=== PATIENT | male | born 1980 | race Caucasian/White ===

== ENCOUNTER 2017-09-08 11:09 | Inpatient (IN) | payer OTHER ==
[~2017-09-08] VITALS: Ht 203.2 cm; Wt 101.2 kg
[2017-09-08 11:29] VITALS: BP 135/96
[2017-09-08] MEDS ORDERED: ZOFRAN ODT SL STA (11:45)
[2017-09-08] MEDS ORDERED: ZOFRAN ODT ONE (11:49)
--- NOTE | 2017-09-08 11:49 | ER.PDOC ---
General Chief Complaint: Abdomen Pain Stated Complaint: NAUSEA,VOMITING,ABDOMINAL PAIN Time seen by MD: 11:47 Source: patient Exam Limitations: no limitations History of Present Illness Initial Comments Nausea/vomiting/abdominal pain for 2 days Severity/Quality: moderate Abdominal Pain Onset Location: Epigastric Associated Symptoms (vomiting): freq vomitng Allergies: Coded Allergies: No Known Allergies (Unverified , 09/08/17) Vital Signs First Vital Signs Date Time Temp Pulse Resp B/P (MAP) Pulse Ox O2 Delivery O2 Flow Rate FiO2 09/08/17 11:26 98.3 18 18 98 Room Air 09/08/17 11:29 135/96 (109) Last Vital Signs Date Time Temp Pulse Resp B/P (MAP) Pulse Ox O2 Delivery O2 Flow Rate FiO2 09/08/17 11:29 98.3 18 18 135/96 (109) 98 Room Air Past Medical History Medical History: GERD Surgical History: cancer surgery Social History Smoking: non-smoker Alcohol Use: occassionally Drug Use: none, marijuana Constitutional: no symptoms reported EENTM: no symptoms reported Respiratory: cough Cardiovascular: no symptoms reported Gastrointestinal: see HPI Genitourinary: no symptoms reported All Other Systems: Reviewed and Negative Physical Exam General Appearance: No Apparent Distress, WD/WN HEENT: PERRL/EOMI Neck: Non-Tender, Full Range of Motion, Supple, Normal Inspection Respiratory: chest non-tender, lungs clear, normal breath sounds, no respiratory distress, no accessory muscle use Cardiovascular: Normal Peripheral Pulses, Regular Rate, Rhythm, No Edema, No Gallop, No JVD, No Murmur Gastrointestinal: No Organomegaly, No Pulsatile Mass, Hyperactive bowel sounds , Tenderness (epigastric area) Back: Normal Inspection, No CVA Tenderness, No Vertebral Tenderness Extremities: Normal Range of Motion, Non-Tender, Normal Inspection, No Pedal Edema, No Calf Tenderness, Normal Capillary Refill, Pelvis Stable 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, No Motor/Sensory Deficits, Alert, Normal Mood/Affect, Oriented x 3 Skin: Normal Color, Warm/Dry Results/Orders Results/Orders Laboratory Tests Test 09/08/17 11:56 09/08/17 13:01 White Blood Count 13.9 10^3/uL (4.5-11.0) Red Blood Count 5.08 10^6/uL (4.50-5.90) Hemoglobin 13.7 g/dL (13.9-16.3) Hematocrit 42.1 % (37.0-53.0) Mean Corpuscular Volume 82.9 fL (78-100) Mean Corpuscular Hemoglobin 27.0 pg (26-34) Mean Corpuscular Hemoglobin Concent 32.5 g/dL (33-37) Red Cell Distribution Width 14.7 % (11.5-14.5) Platelet Count 262 10^3/uL (150-400) Mean Platelet Volume 9.8 fL (7.8-11.0) Neutrophils (%) (Auto) 80.6 % (41.0-85.0) Lymphocytes (%) (Auto) 10.7 % (24.0-44.0) Monocytes (%) (Auto) 7.3 % (5.0-12.0) Neutrophils # (Auto) 11.2 10^3/uL (1.8-7.7) Lymphocytes # (Auto) 1.5 10^3/uL (1.0-4.8) Monocytes # (Auto) 1.0 10^3/uL (0.3-0.8) Absolute Immature Granulocyte (auto 0.04 10^3 u/L (0-2) Eosinophils % 1.0 % (0.0-5.0) Basophils % 0.1 % (0.0-0.2) Basophils # 0.0 10^3/uL (0.0-0.1) Eosinophil Count 0.1 10^3/uL (0.0-0.2) Sodium Level 137 mmol/L (132-145) Potassium Level 3.3 mmol/L (3.6-5.2) Chloride Level 102.0 mmol/L (96-109) Carbon Dioxide Level 23.8 mmol/L (20.0-32) Anion Gap 14.5 Blood Urea Nitrogen 19 mg/dL (7-18) Creatinine 1.19 mg/dL (0.59-1.40) Estimated GFR () 82.3 (>/=60) BUN/Creatinine Ratio 15.0 Glucose Level 131 mg/dL (70-110) Calcium Level 9.0 mg/dL (8.4-10.5) Total Bilirubin 0.9 mg/dL (0.2-1.0) Aspartate Amino Transf (AST/SGOT) 27 U/L (0-35) Alanine Aminotransferase (ALT/SGPT) 28 U/L (12-78) Alkaline Phosphatase 71 U/L (50-136) Total Protein 7.0 g/dL (6.4-8.2) Albumin 3.5 g/dL (3.4-5.0) Globulin 3.5 Lipase 74 U/L (114-286) Percent Immature Gran (Cell Imm) 0.30 % (0.00-0.50) Gastric Fluid Occult Blood POSITIVE (NEGATIVE) Administered Medications Medications (Trade) Dose Ordered Sig/Leatha Route PRN Reason Start Time Stop Time Status Last Admin Dose Admin Ondansetron HCl (Zofran Odt) 4 mg STAT STAT SL 09/08/17 11:45 09/08/17 11:47 DC 09/08/17 11:51 Sodium Chloride 1,000 ml @ 1,200 mls/hr Q50M STAT IV 09/08/17 12:48 09/08/17 13:37 DC 09/08/17 13:05 Ondansetron HCl (Zofran) 4 mg STAT STAT IV 09/08/17 12:48 09/08/17 12:51 DC 09/08/17 13:05 Pantoprazole Sodium (Protonix Iv) 80 mg STAT STAT IV 09/08/17 13:50 09/08/17 13:51 DC 09/08/17 13:53 Pantoprazole Sodium 80 mg/ Sodium Chloride 100 ml @ 10 mls/hr Q10H IV 09/08/17 14:00 10/08/17 13:59 09/08/17 13:59 EKG/XRAY/CT/US CT Comments: Pneumonia, see rest of CT results Departure Time of Disposition: 15:21 Disposition: 09 ADMITTED INPATIENT Impression: Primary Impression: GI bleed Qualified Codes: K92.2 - Gastrointestinal hemorrhage, unspecified Additional Impression: Pneumonia Qualified Codes: J18.9 - Pneumonia, unspecified organism Condition: Stable Referrals: PCP,UNKNOWN (PCP) PRIMARY CARE PROVIDER Comments Admit to Dr. Magallanes Duration or Time Spent with Pa: 120 mins Critical Care Note Total Time (mins): 120 MARIA ESTHER CONWAY MD Sep 08, 2017 11:49
[2017-09-08 12:01] LABS: BASOPHIL % 0.1 % (0.0-0.2); EOSINOPHIL # 0.1 10^3/uL (0.0-0.2); HEMOGLOBIN 13.7 g/dL (13.9-16.3); LYMPHOCYTES # 1.5 10^3/uL (1.0-4.8); LYMPHOCYTES % 10.7 % (24.0-44.0); MEAN CELL HGB CONCENTRATION 32.5 g/dL (33-37); MEAN CORP VOLUME 82.9 fL (78-100); MEAN PLATELET VOLUME 9.8 fL (7.8-11.0); MONOCYTES % 7.3 % (5.0-12.0); NEUTROPHIL # 11.2 10^3/uL (1.8-7.7); NEUTROPHILS % 80.6 % (41.0-85.0); RED CELL DISTRIBUTION WIDTH 14.7 % (11.5-14.5); WHITE BLOOD CELL 13.9 10^3/uL (4.5-11.0)
--- NOTE | 2017-09-08 12:10 | DIREP ---
PROCEDURE:XR ABDOMEN 2 VIEWS COMPARISON:None. INDICATIONS:Abdomen pain x 1 day TECHNIQUE:Flat and upright views of the abdomen are provided. FINDINGS: BOWEL GAS PATTERN:Nonobstructive. No excess stool visible in the colon. CALCIFICATIONS:None significant. LUNG BASES:Clear. BONES:Normal. OTHER:No free air. CONCLUSION:No acute abnormalities. Dictated by: Navarro Amaya M.D. on 09/08/2017 at 12:08 PM
[2017-09-08 12:24] LABS: CARBON DIOXIDE 23.8 mmol/L (20.0-32)
[2017-09-08] MEDS ORDERED: NS 1000ML 1,000 ML IV STA (12:48)
[2017-09-08] MEDS ORDERED: ZOFRAN IV STA (12:48)
[2017-09-08] MEDS ORDERED: NS 1000ML 1,000 ML ONE (12:53)
[2017-09-08] MEDS ORDERED: ZOFRAN ONE (12:53)
[2017-09-08] MEDS ORDERED: PROTONIX IV IV STA (13:50)
[2017-09-08] MEDS ORDERED: PROTONIX IV IV ONE (13:54)
[2017-09-08] MEDS ORDERED: NS 100ML 100 ML IV ONE (13:54)
[2017-09-08] MEDS: PROTONIX IV 80 MG in NS 100ML 100 ML IV SCH (13:59)
--- NOTE | 2017-09-08 14:48 | DIREP ---
PROCEDURE:CT ABDOMEN/PELVIS W/ CONTRAST COMPARISON:[facility], CR, XRAY ABDOMEN 2VW, 09/08/2017, 11:50 AM. INDICATIONS:Upper abdominal pain and vomiting TECHNIQUE:Axial images were created through the abdomen and pelvis with non-ionic intravenous contrast material. No oral contrast was administered. Sagittal and coronal reconstructions were performed from source images. FINDINGS: LUNG BASES:Patchy lingular consolidation suggestive of pneumonia. Minimal partially seen infiltrate or atelectasis is also suspected at the left lower lobe. LIVER:Normal. No significant liver lesions are identified. BILIARY:Normal. No visible dilatation or calcification. PANCREAS:Normal. No lesion, fluid collection, ductal dilatation, or atrophy. SPLEEN:Normal. No enlargement or focal lesion. ADRENALS:Normal. No mass or enlargement. URINARY TRACT:Normal. No focal lesions or hydronephrosis. AORTA/VASCULAR:Normal. No aneurysm. RETROPERITONEUM:Normal. No mass or adenopathy. BOWEL/MESENTERY:The appendix is visualized and appears normal. There is no intestinal obstruction, free fluid, free air or mesenteric inflammatory changes. There is a small hiatal hernia however the gastroesophageal junction that appears to extend below the diaphragmatic hiatus. There is herniation of the gastric fundus through the esophageal hiatus consistent with a paraesophageal hernia. There are surgical clips at the gastroesophageal junction. Findings could also represent an Natanael fundoplication. Clinical correlation for incarceration is recommended. ABDOMINAL WALL:Normal. No mass or hernia. PELVIC ORGANS:Normal. No visible mass. Pelvic organs appropriate for patient age. BONES:Endplate subchondral cystic changes involving L4 and L5.. OTHER:Negative. CONCLUSION: 1. Patchy lingular consolidation consistent with bronchopneumonia. Minimal atelectasis or infiltrate in the left lower lobe is well. 2. Small paraesophageal hiatal hernia containing the gastric fundus. There are surgical clips at the gastroesophageal junction. Question Natanael fundoplication. The possibility of incarceration is not excluded given the patient's history of upper abdominal pain and vomiting. Dictated by: Rahul Kenny MD on 09/08/2017 at 02:41 PM
--- NOTE | 2017-09-08 15:03 | NUR ---
DR DEANDRA SANCHEZA ON PHONE WITH DR LIRIANO
--- NOTE | 2017-09-08 15:17 | NUR ---
DR MARILY BRYANT MBA ON PHONE WITH DR CALIXOT
[2017-09-08] MEDS ORDERED: LEVAQUIN 150 ML IV STA (15:24)
--- NOTE | 2017-09-08 15:24 | PRM.ACF1 ---
Date and Time Date and Time Time: :23 Admission Criteria Forms GASTROENTEROLOGY [facility] Clinical Indications for Admission to Inpatient Care ([place]/ check or initial the applicable condition/criteria) Hospital admission is needed for appropriate care of the patient because of ANY ONE of the following: I. Suspected acute intra-abdominal process indicated by 1 or more of the following(1)(2)(3)(4)(5): a) Hemodynamic instability b) Peritoneal signs present (eg, abdominal rigidity, rebound tenderness, absent bowel sounds) c) Bowel obstruction suspected (eg, persistent vomiting, abdominal distention )(6)(7)(8) d) Suspected mesenteric ischemia or ischemic colitis(9)(10)(11) e) Other signs or symptoms of acute abdominal disease (eg, severe pain, free air)(12) II. Hemoperitoneum(13)(14) III. Ascites requiring acute treatment indicated by 1 or more of the following ( 15)(16)(17)(18) a) Hemodynamic instability b) Peritoneal signs present (e.g., abdominal rigidity, rebound tenderness, absent bowel sounds) c) Tachypnea, Hypoxemia,or other respiratory symptoms remain after emergency or observation level care (as appropriate) d) Suspected infected ascites as indicated by 1 or more of the following(19) (20) i) Fever ii) Vital sign abnormality iii) Abdominal pain or tenderness not relieved by paracentesis iv) Systemic signs of infection (e.g., elevated WBC count, fever) v) Ascitic fluid analysis consistent with infection ( e.g., elevated WBC count) IV. Severe liver disease indicated by 1 or more of the following (15)(16)(21)(22 )(23)(24)(25)(26)(27)(28) a) Acute hepatitis (e.g., transaminaselevel greater than 1000 IU/L) b) Acute elevation of prothrombintime to more than 50% above normal or INR greater than 1.5 c) Bilirubin greater than 20 mg/dL (342 micromoles/L) d) New-onset or worseninghepatic encephalopathy e) Acute elevation of serum ammonia level (eg, greater than 210 mcg/dL ( 150 micromoles/L)) f) Acute liver necrosis g) Vomiting that is severe of persistent h) Hemodynamic instability due to liver disease i) Acute renal failure j) Hepatic abscess k) Hepatic hydrothorax(29) l) Other indications of severe liver disease (e.g., persistent fever, ingestion of hepatotoxin)(30) V. Dehydration that is severe or persistent . Severe diarrhea indicated by 1 or more of the following (31)(32)(33)(34)(35 ) : a) High fever or other high-risk infection situation b) Intractable bloody diarrhea (e.g., more than 6 bloody stools per day) c) Suspected etiology (Clostridiumdifficile-associated diarrhea) that requires isolation or care not feasible in outpatient setting (36) d) Altered mental status that is severe or persistent e) Dehydration that is severe or persistent g) Peritoneal signs present (e.g., abdominal rigidity, rebound tenderness , absent bowel sounds) h) Abdominal ischemia suspected (9)(10)(11) i) Hemodynamic instability j) Severe electrolyte abnormalities requiring inpatient care k) Acute renal failure VII. Suspected toxic michelle colon(4)(9) VIII. Severe dysphagia indicated by 1 or more of the following(37)(38) a) Suspected esophageal perforation or fistula(39) b) Suspected cause that requires inpatient care (e.g., caustic ingestion , severe esophagitis) (40)(41) c) Dehydration that is severe or persistent d) Inability to manage secretions or maintain hydration e) Hemodynamic instability f) Severe electrolyte abnormalities requiring inpatient care g) Acute renal failure IX. Vomiting and 1 or more of the following (42)(43)(44)(45)(46) a) High fever or other high-risk infection situation b) Altered mental status that is severe or persistent c) Dehydration that is severe or persistent d) Peritoneal signs present (e.g., abdominal rigidity, rebound tenderness, absent bowel sounds) e) Hemodynamic instability f) Severe electrolyte abnormalities requiring inpatient care g) Acute renal failure h) Bowel obstruction suspected (e.g., severe vomiting, abdominal distension) i) Vomiting that is severe or persistent X. Gastroparesis and 1 or more of the following(46)(47)(48)(49): a) Dehydration that is severe or persistent b) Severe electrolyte abnormalities requiring inpatient care c) Acute renal failure d) Vomiting that is severe or persistent XI Obstipation and 1 or more of the following(50)(51)(52)(53) a) Complication of fecal impaction (eg, stercoral ulceration, perforation, venous compression, obstructive uropathy) b) Fecal disimpaction by digital fragmentation or mechanical disimpaction unsuccessful XII Complication of gastrostomy or jejunostomy feeding tube(54)(55)(56) a) Luminal perforation b) Gastrocolonic fistula c) Cellulitis of surrounding area with failure of outpatient treatment d) Necrotizing fasciitis e) Peritonitis f) Gastric herniation or prolapse g) Ischemic necrosis of gastric wall ("buried bumper") h) Other complication of gastrostomy or jejunostomy unable to be resolved at lower level of care XII. Complications of transplanted liver indicated by 1 or more of the following (57)(58)(59): a) Acute graft rejection requiring inpatient management (eg, intravenous immuno suppression)(60)(61) b) Failure of transplanted liver as indicated by 1 or more of the following: i. Acute hepatitis (eg, transaminase level greater than 1000 International Units per liter (IU/L)) ii. Acute elevation of prothrombin time to more than 50% above baseline or INR greater than 1.5 iii. Bilirubin greater than 20 mg/dL (342 micromoles/L) iv. New-onset or worsening hepatic encephalopathy v. Acute elevation of serum ammonia level (eg, greater than 210 mcg/dL (150 micromoles/L)) vi. Acute liver necrosis c) Infection requiring inpatient management (eg, Hemodynamic instability, need for intravenous antimicrobial treatment) (62)(63)(64)(65)(66) d) Other complication of transplanted liver (eg, thrombosis, autoimmune hepatitis, variceal bleeding) requiring inpatient management (67)(68)(69) XII. Complications of transplanted pancreas indicated by 1 or more of the following (70) a) Acute graft rejection requiring inpatient management (eg, intravenous immunosuppression)(60)(71) b) Failure of transplanted pancreas as indicated by 1 or more of the following: i. Serum amylase greater than 3 times the upper limit of normal or baseline ii. Serum lipase greater than 3 times the upper limit of normal or baseline iii. Imaging findings consistent with pancreatic inflammation or necrosis c) Infection requiring inpatient management (eg, Hemodynamic instability, need for intravenous antimicrobial treatment) (64)(65)(66) d) Other complication of transplanted pancreas (eg, graft thrombosis, pancreatic duct stricture, anastomotic leak) requiring inpatient management (72 ) xIII. Gastroenterology condition,Symptom or finding for which emergency and observation care have failed or are not considered appropriate.See General criteria: Observation care, General Admission criteria or Pediatric General Admission criteria guideline as appropriate. The original [facility] content created by [facility] has been revised. The portions of the content which have been revised are identified through the use of italic text or in bold,and [facility] has neither reviewed nor approved the modified material. All other unmodified content is copyright [facility]. Please see references footnoted in the original [facility] edition 2017 MARIA ESTHER CONWAY MD Sep 08, 2017 15:24
[2017-09-08] MEDS ORDERED: D5W-1/2NS 1000ML 1,000 ML IV ONE (15:30)
--- NOTE | 2017-09-08 16:00 | NUR ---
ARRIVAL ARRIVED TO UNIT VIA WHEELCHAIR. REPORT RECEIVED FROM GIO MCKEON. ORIENTED PT TO ROOM, CALL LIGHT AND BATHROOM. BED IN LOW POSITION WHEELS LOCKED CALL LIGHT IN REACH. WILL CONTINUE TO MONITOR
[2017-09-08 17:46] VITALS: BP 136/65
--- NOTE | 2017-09-08 18:40 | NUR ---
Report Received report from Ketty Jennings LVN
[2017-09-08] MEDS ORDERED: ZOFRAN IV PRN (20:00)
[2017-09-08] MEDS ORDERED: MORPHINE SULFATE IV PRN (20:00)
[2017-09-08] MEDS ORDERED: TYLENOL PO PRN (20:00)
[2017-09-08] MEDS ORDERED: TYLENOL #3 PO PRN (20:00)
[2017-09-08 20:04] VITALS: BP 147/92
[2017-09-08] MEDS ORDERED: LACTATED RINGERS 1,000 ML IV SCH (20:30)
--- NOTE | 2017-09-08 21:59 | NUR ---
Patient resting in bed with eyes closed. Resp even and non labored. No s/s of distress noted at this time. Will continue to monitor. Call light within reach.
--- NOTE | 2017-09-09 | PCM.HP ---
History of Present Illness Reason for Visit: Throwing up blood History of Present Illness Mr Ward is a 37 year old man with a history of GERD and upper GI bleed in the past. He had a Natanael fundoplication about five years ago. He does not smoke and has a good functional status. He states he has done very well after fundoplication. Today he had a couple of episodes of hematemesis. He had subjective chills and diarrhea also. He is traveling from [place] but denies any sick contacts. His last emesis was upon arrival to the ER today. Past Medical History GI: GERD, GI Bleed, Gastritis Past Surgical History: Other (Natanael fundoplication) Past Social History Smoke: No Alcohol: none Drugs: None Lives: with Family Travel Hx EBOLA RISK:Travel to/contact w: No Is pt experiencing any Ebola s: No Review of Systems Constitutional: Chills, Weakness Eyes: No: Vision change, Conjunctivae inflammation, Redness ENT: No: Nose discharge, Mouth pain, Mouth swelling, Throat pain Respiratory: No: Cough, Shortness of breath, Wheezing, Hemoptysis Cardiovascular: No: Chest Pain, Palpitations, Edema, Lt Headedness Gastrointestinal: Nausea, Vomiting Genitourinary: No Dysuria, No Frequency Musculoskeletal: No: neck pain, shoulder pain, back pain Skin: No: Rash, Lesions, Jaundice Neurological: No: Weakness, Numbness, Incoordination Other Laboratory Tests Test 09/08/17 11:56 09/08/17 13:01 White Blood Count 13.9 10^3/uL Red Blood Count 5.08 10^6/uL Hemoglobin 13.7 g/dL Hematocrit 42.1 % Mean Corpuscular Volume 82.9 fL Mean Corpuscular Hemoglobin 27.0 pg Mean Corpuscular Hemoglobin Concent 32.5 g/dL Red Cell Distribution Width 14.7 % Platelet Count 262 10^3/uL Mean Platelet Volume 9.8 fL Neutrophils (%) (Auto) 80.6 % Lymphocytes (%) (Auto) 10.7 % Monocytes (%) (Auto) 7.3 % Neutrophils # (Auto) 11.2 10^3/uL Lymphocytes # (Auto) 1.5 10^3/uL Monocytes # (Auto) 1.0 10^3/uL Absolute Immature Granulocyte (auto 0.04 10^3 u/L Eosinophils % 1.0 % Basophils % 0.1 % Basophils # 0.0 10^3/uL Eosinophil Count 0.1 10^3/uL Sodium Level 137 mmol/L Potassium Level 3.3 mmol/L Chloride Level 102.0 mmol/L Carbon Dioxide Level 23.8 mmol/L Anion Gap 14.5 Blood Urea Nitrogen 19 mg/dL Creatinine 1.19 mg/dL Estimated GFR () 82.3 BUN/Creatinine Ratio 15.0 Glucose Level 131 mg/dL Calcium Level 9.0 mg/dL Total Bilirubin 0.9 mg/dL Aspartate Amino Transf (AST/SGOT) 27 U/L Alanine Aminotransferase (ALT/SGPT) 28 U/L Alkaline Phosphatase 71 U/L Total Protein 7.0 g/dL Albumin 3.5 g/dL Globulin 3.5 Lipase 74 U/L Percent Immature Gran (Cell Imm) 0.30 % Gastric Fluid Occult Blood POSITIVE Allergies: Coded Allergies: No Known Allergies (Unverified , 09/08/17) VTE VTE Risk Total Score: 3 VTE Risk Score VTE Risk: Score 0-1 = Low Risk (Aggressive mobilization; early ambulation; no VTE prophylaxis required) Score 2: Moderate Risk (Intermittent/Pneumatic Compression Device OR Lovenox/Heparin/Coumadin) Score 3-4: High Risk (Intermittent/Pneumatic Compression Device AND Lovenox/Heparin/Coumadin) Score > or =5: Highest Risk (Intermittent/Pneumatic Compression Device AND Lovenox/Heparin/Coumadin) VTE VTE Present on Admission: No Currently receiving anticoagul: No VTE Risk Total Score: 3 Exam Vital Signs Vital Signs Date Time Temp Pulse Resp B/P (MAP) Pulse Ox O2 Delivery O2 Flow Rate FiO2 09/08/17 20:04 98.7 94 18 147/92 (110) 92 Room Air General Appearance: Alert, Oriented X3, Cooperative, No acute distress HEENT: PERRLA, EOMI Respiratory: Clear to auscultation, Normal air movement Cardiovascular: Regular rate, Normal S1, Normal S2, No murmurs Abdominal: Normal bowel sounds, Soft, No tenderness Extremities: No clubbing, No cyanosis, No edema Skin: No breakdown, No lesions Neuro: Normal speech, Strength at 5/5 X4 ext, Cranial nerves 3-12 NL Psych/Mental Status: Mood NL Assessment/Plan Assessment/Plan Assessment/Plan Mr Ward is a 37 year old man status post fundoplication five years ago here with: 1. Lingular pneumonia - CT evidence of mild infiltrate, likely due to aspiration 2. Upper GI bleed - reported hematemesis and occult blood positive 3. Dehydration - clinically dehydrated Problems: Patient History: Plan 1. Lingular pneumonia - IV Levofloxacin 2. Upper GI bleed - IV PPI, General Surgery consult, follow hemoglobin 3. Dehydration - IV fluids PRN pain and nausea medications Plan discussed with patient, he is his own decision maker and does understand and concur with plans Time spent 40 minutes MAT CALIXTO MD Sep 08, 2017 23:59
[2017-09-09 00:27] VITALS: BP 130/75
[2017-09-09] MEDS: PROTONIX IV 80 MG in NS 100ML 100 ML IV SCH (00:50)
--- NOTE | 2017-09-09 02:14 | NUR ---
Patient continues to rest in bed with eyes closed. Resp even and non labored. No s/s of distress noted at this time. Will continue to monitor. Call light within reach.
[2017-09-09 05:12] VITALS: BP 132/82
[2017-09-09 05:21] LABS: BASOPHIL % 0.3 % (0.0-0.2); EOSINOPHIL # 0.3 10^3/uL (0.0-0.2); EOSINOPHIL % 3.8 % (0.0-5.0); HEMOGLOBIN 12.8 g/dL (13.9-16.3); LYMPHOCYTES % 25.7 % (24.0-44.0); MEAN CELL HGB 27.2 pg (26-34); MEAN CELL HGB CONCENTRATION 32.2 g/dL (33-37); MEAN CORP VOLUME 84.7 fL (78-100); MEAN PLATELET VOLUME 10.4 fL (7.8-11.0); MONOCYTES # 0.8 10^3/uL (0.3-0.8); MONOCYTES % 10.5 % (5.0-12.0); NEUTROPHIL # 4.7 10^3/uL (1.8-7.7); NEUTROPHILS % 59.6 % (41.0-85.0); RED CELL DISTRIBUTION WIDTH 14.6 % (11.5-14.5); WHITE BLOOD CELL 7.8 10^3/uL (4.5-11.0)
[2017-09-09 05:53] LABS: CALCIUM 8.5 mg/dL (8.4-10.5); CARBON DIOXIDE 28.1 mmol/L (20.0-32)
--- NOTE | 2017-09-09 06:41 | NUR ---
Report Report given to Sachi Buitrago RN
--- NOTE | 2017-09-09 07:24 | NUR ---
REPORT REPORT RECEIVED FROM SALESPERSON [employer]
[2017-09-09 07:32] VITALS: BP 108/59
[2017-09-09] MEDS ORDERED: WATER ONE (08:26)
[2017-09-09] MEDS ORDERED: LACTATED RINGERS 1,000 ML ONE (08:54)
[2017-09-09] MEDS ORDERED: DIPRIVAN IV ONE (09:07)
[2017-09-09] MEDS ORDERED: LIDOCAINE 2% VIAL ONE (09:07)
--- NOTE | 2017-09-09 09:35 | NUR ---
DISCHARGE PLANNING CM VISITED WITH PATIENT REGARDING DISCHARGE PLAN AND NEEDS. PATIENT LIVES IN [place] BUT HAS BEEN STAYING IN A HOTEL HERE IN [place] FOR WORK. 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 HE IS INDEPENDENT WITH ALL ADL'S. DISCHARGE GOAL IS TO DISCHARGE BACK TO THE HOTEL. PATIENT DENIES NEED FOR ANY DME, HOME OXYGEN, OR HOME HEALTH AT THIS TIME. WILL CONTINUE TO MONITOR DISCHARGE NEEDS. Addendum: 09/09/17 at 1121 by Ramez Valle RN - Case Mngmt RNEA WITH [facility] IS WORKING WITH PATIENT FOR INSURANCE NEEDS.
[2017-09-09] MEDS ORDERED: OMEP20TA9 PO (11:12)
--- NOTE | 2017-09-09 11:27 | PRM.DC ---
Discharge Summary Date of Discharge: Sep 09, 2017 Reason for Visit: Throwing up blood History Present Illness: (1) Pneumonia Status: Acute ICD Code: J18.9 - Pneumonia, unspecified organism SNOMED: 695782266 Assessment & Plan: five more days of oral antibiotics (2) GI bleed Status: Resolved ICD Code: K92.2 - Gastrointestinal hemorrhage, unspecified SNOMED: 64657599 (3) Hiatal hernia SEVERITY: MILD PERSISTENT Status: Chronic ICD Code: K44.9 - Diaphragmatic hernia without obstruction or gangrene SNOMED: 36702227 Assessment & Plan: follow up with Surgery for further management Oral PPI daily General: Alert, Oriented X3, Cooperative, No acute distress HEENT: PERRLA, EOMI Neck: Supple, No JVD Lungs: Clear to auscultation, Normal air movement Heart: Regular rate, Normal S1, Normal S2 Abdomen: Normal bowel sounds, Soft, No tenderness Extremities: No clubbing, No cyanosis Skin: No breakdown Neuro: Normal speech, Strength at 5/5 X4 ext, Cranial nerves 3-12 NL Psych/Mental Status: Mood NL Results(Labs/Rad) Laboratory Tests Test 09/08/17 11:56 09/08/17 13:01 09/09/17 05:00 White Blood Count 13.9 10^3/uL 7.8 10^3/uL Red Blood Count 5.08 10^6/uL 4.70 10^6/uL Hemoglobin 13.7 g/dL 12.8 g/dL Hematocrit 42.1 % 39.8 % Mean Corpuscular Volume 82.9 fL 84.7 fL Mean Corpuscular Hemoglobin 27.0 pg 27.2 pg Mean Corpuscular Hemoglobin Concent 32.5 g/dL 32.2 g/dL Red Cell Distribution Width 14.7 % 14.6 % Platelet Count 262 10^3/uL 232 10^3/uL Mean Platelet Volume 9.8 fL 10.4 fL Neutrophils (%) (Auto) 80.6 % 59.6 % Lymphocytes (%) (Auto) 10.7 % 25.7 % Monocytes (%) (Auto) 7.3 % 10.5 % Neutrophils # (Auto) 11.2 10^3/uL 4.7 10^3/uL Lymphocytes # (Auto) 1.5 10^3/uL 2.0 10^3/uL Monocytes # (Auto) 1.0 10^3/uL 0.8 10^3/uL Absolute Immature Granulocyte (auto 0.04 10^3 u/L 0.01 10^3 u/L Eosinophils % 1.0 % 3.8 % Basophils % 0.1 % 0.3 % Basophils # 0.0 10^3/uL 0.0 10^3/uL Eosinophil Count 0.1 10^3/uL 0.3 10^3/uL Sodium Level 137 mmol/L 143 mmol/L Potassium Level 3.3 mmol/L 3.6 mmol/L Chloride Level 102.0 mmol/L 106.0 mmol/L Carbon Dioxide Level 23.8 mmol/L 28.1 mmol/L Anion Gap 14.5 12.5 Blood Urea Nitrogen 19 mg/dL 10 mg/dL Creatinine 1.19 mg/dL 1.25 mg/dL Estimated GFR () 82.3 77.8 BUN/Creatinine Ratio 15.0 8.0 Glucose Level 131 mg/dL 131 mg/dL Calcium Level 9.0 mg/dL 8.5 mg/dL Total Bilirubin 0.9 mg/dL Aspartate Amino Transf (AST/SGOT) 27 U/L Alanine Aminotransferase (ALT/SGPT) 28 U/L Alkaline Phosphatase 71 U/L Total Protein 7.0 g/dL Albumin 3.5 g/dL Globulin 3.5 Lipase 74 U/L Percent Immature Gran (Cell Imm) 0.30 % 0.10 % Gastric Fluid Occult Blood POSITIVE Helicobacter pylori Screen NEGATIVE Scheduled Omeprazole (Omeprazole), 1 TAB PO DAILY Sepsis Evaluation @ Discharge Course Blood Pressure Systolic: 108 Blood Pressure Diastolic: 59 Blood Pressure Mean: 75 Notes see dictated report Plan Discharge Date: Sep 09, 2017 Dicharge DX: 1, Pnuemonia, 2. Hiatal hernia, 3. Upper GI bleed Discharge Disposition: Stable Plan Medications per discharge list Diet and activity as tolerated Follow up with PCP and Surgery for further management of hiatal hernia Discharge plans discussed with patient, he is his own decision maker and does understand and concur with plans Time spent 25 minutes Problem Qualifiers (1) Pneumonia: Pneumonia type: due to unspecified organism Laterality: unspecified laterality Lung location: unspecified part of lung Qualified Codes: J18.9 - Pneumonia, unspecified organism (2) GI bleed: GI bleed type/associated pathology: unspecified gastrointestinal hemorrhage type Qualified Codes: K92.2 - Gastrointestinal hemorrhage, unspecified MAT CALIXTO MD Sep 09, 2017 11:27
[2017-09-09] MEDS ORDERED: LEVO500T51 PO (11:28)
--- NOTE | 2017-09-09 11:46 | OPH ---
DATE OF SURGERY: PREOPERATIVE DIAGNOSIS: History of hematemesis. POSTOPERATIVE DIAGNOSES: 1. Gastritis. 2. Recurrent hiatal hernia. 3. Esophagitis. SURGEON: Panchito Hernandez DO DRY CLEANER HELPER: OR staff. ANESTHESIA: Total intravenous anesthesia by Annette Blake CRNA PROCEDURE PERFORMED: Esophagogastroduodenoscopy with biopsy. SPECIMENS: Gastric mucosa to path. ESTIMATED BLOOD LOSS: 5 mL. COUNTS: At the completion of the case, counts were correct per OR staff. DESCRIPTION OF PROCEDURE: The patient is a 37-year-old male known from previous evaluation. Prior to procedure, informed consent was obtained. At time of procedure, he was taken to the operative suite and placed in supine position. After time-out, he was placed in left lateral recumbent position. After adequate sedation, esophagogastroduodenoscope was advanced transorally with pneumoinsufflation distally to second portion of duodenum. Once the duodenum was adequately visualized, camera was slowly withdrawn to facilitate visualization of the duodenal bulb and the pylorus. Pylorus and distal stomach showed minimal gastritis, biopsies were obtained. The retroflexed maneuver was performed. The cardia showed a partial wrap consistent with previous fundoplication; however, there was a recurrent hiatal hernia that appeared to be mixed type hiatal hernia. There were no signs of incarceration or strangulation. Camera was reduced, stomach was decompressed. Scope was slowly withdrawn. Distal third of the esophagus has changes consistent with an incompetent valve and some significant reflux as well as esophagitis. Mid and proximal esophagus were grossly normal. Camera was removed. Procedure was discontinued. The patient tolerated this procedure well. There were no acute complication noted. Panchito Hernandez DO DR: VIKI/izabela JOB# [id number] CC: Saeid Magallanes MD
[2017-09-09 12:45] VITALS: BP 108/59
--- NOTE | 2017-09-09 12:45 | NUR ---
DISCHARGE PT DC AT THIS TIME. PT UNDERSTANDS NEW PRESCRIPTIONS. PT DENIES ANY QUESTIONS OR CONCERNS. PT AMBULATED OFF OF FLOOR TO PRIVATE VEHICLE ACCOMPANIED BY SPOUSE. NO OTHER QUESTIONS OR CONCERNS NOTED AT THIS TIME
--- NOTE | 2017-09-10 01:17 | CNH ---
DATE OF CONSULTATION: CHIEF COMPLAINT: Hematemesis. HISTORY OF PRESENT ILLNESS: This is a 37-year-old male who reports he had 4 episodes of hematemesis starting on Friday this week. He was evaluated in the Emergency Department at [facility] and subsequently admitted to the Med/Surg floor to the service of the hospitalist. I have seen him on a couple of occasions and he is clinically better, though he has had nausea, vomiting and apparently some loose stools recently. He does have a history of previous Natanael fundoplication, has had a good functional status; however, he has had the episodes of sickness recently. He is feeling much better this morning than he was on previous evaluation at the time of admission. Apparently, he has had no recent sick contacts. PAST MEDICAL HISTORY: Includes GERD and reflux. PAST SURGICAL HISTORY: Includes laparoscopic Natanael fundoplication. SOCIAL HISTORY: Denies alcohol, tobacco or illicit drug use. FAMILY HISTORY: Mother and father are living, both 65 and relatively healthy. REVIEW OF SYSTEMS: CONSTITUTIONAL: He did have some fever and chills. No weakness. ENDOCRINE: He denies any thyroid disease or diabetes. CARDIOVASCULAR: No chest pain or trouble breathing. PULMONARY: No dyspnea or cough. ABDOMEN: As per HPI. MUSCULOSKELETAL: No complaints. NEUROLOGIC: No reported seizures or blackouts. PHYSICAL EXAMINATION: VITAL SIGNS: Last temperature is 98.0, pulse 66, respiratory ate 20, blood pressure 108/59. GENERAL: This is a 37-year-old male in no acute distress. HEENT: Normocephalic, atraumatic. Talty mucous membranes. NECK: Supple and soft. Trachea is midline. No JVD or thyromegaly. HEART: Has regular rate and rhythm. LUNGS: Clear bilaterally. ABDOMEN: Bowel sounds positive, soft, nontender. EXTREMITIES: Show positive radial pulse bilaterally. Positive pedal pulse bilaterally. NEUROLOGIC: No acute findings. Cranial nerves 2-12 are grossly intact. SKIN AND INTEGUMENTARY: Warm and dry. LABORATORY STUDIES: White count on admission 13.9, repeat 7.8, hemoglobin has gone from 13 7 to 12.8, platelet count has gone from 262 to 232, BUN on admission was 19, it is improved to 10 and creatinine is 1.25. ASSESSMENT: 1. History of hematemesis. 2. Clinical dehydration, improved. PLAN: The patient is seen and examined. Chart is reviewed. After some discussion with the patient, repeat labs are noted to be serology negative for H. pylori. We will plan for EGD and biopsy possibly today. He is in agreement with this plan. Panchito Hernandez DO DR: VIKI/izabela JOB# [id number] CC: Saeid Magallanes MD
--- NOTE | 2017-09-10 11:39 | DSH ---
DATE OF DISCHARGE: 09/09/2017 DISPOSITION: Routine discharge home. PRINCIPAL DIAGNOSES AT DISCHARGE: Includes upper GI bleed, hiatal hernia and mild lingular pneumonia. BRIEF SUMMARY: The patient was initially admitted through the Emergency Room on 09/08/2017 with reports of coffee-ground emesis. He had had a prior Natanael fundoplication. He had a couple of episodes of emesis and he did have occult blood positive lab work. Hemoglobin was stable. General Surgery was consulted. He had an EGD, which did not show any active bleeding. He did have a recurrent hiatal hernia. He had evidence of mild lingular pneumonia noted on CT scan. He was started on IV Levaquin. On day of discharge, he was feeling better, was tolerating diet well. Routine discharge home. DISCHARGE MEDICATIONS: He was encouraged to take omeprazole 20 mg daily plus Levaquin 500 mg daily for 5 more days. DISCHARGE ACTIVITY AND DIET: As tolerated. DISCHARGE FOLLOWUP: With PCP in 1-2 weeks. Discharge plans were discussed with the patient. He is his own decision maker. He does understand and concur with plans. Time spent on discharge is 25 minutes. Saeid Magallanes MD DR: RL/izabela JOB# [id number]
== END 2017-09-09 12:56 | disposition home or self-care (01) | DRG 377 ==
LOC: ER 11:09 → MS 15:20
PROVIDERS: ADMIT Internal Medicine; ATTEND Internal Medicine
PROC: 0DB78ZX Excision of Stomach, Pylorus, Via Natural or Artificial Opening Endoscopic, Diagnostic (ICD-10-PCS; principal; 2017-09-08)
DX: K29.71 Gastritis, unspecified, with bleeding (principal); J18.9 Pneumonia, unspecified organism; K21.0 Gastro-esophageal reflux disease with esophagitis; E86.0 Dehydration; K44.9 Diaphragmatic hernia without obstruction or gangrene
CPT/HCPCS: 36415; 43239; 74019; 74177; 80048; 80053; 82271; 83690; 85025; 86677; 87040; 88305; 99291; 99292; C9113; J1956; J2001; J2405; J3490; J7030; J7050; J7120; Q0162; Q9965

== ENCOUNTER 2019-08-17 18:44 | Emergency (ER) | payer OTHER ==
[~2019-08-17] VITALS: Ht 205.7 cm; Wt 97.5 kg
[~2019-08-17 18:44] MED LIST: LEVO500T51 PO; OMEP20TA9 PO
[2019-08-17 19:03] VITALS: BP 147/80
[2019-08-17 19:25] VITALS: BP 147/80
--- NOTE | 2019-08-17 19:41 | ER.PDOC ---
General Chief Complaint: Cough/Congestion Stated Complaint: FEVER, COUGH, CONGESTION Time seen by MD: 19:15 Source: patient Exam Limitations: no limitations History of Present Illness Initial Comments Cough sore throat and not feeling well for the past couple of days. Denies N/V/D "feels like I have the flu" Timing/Duration: gradual Severity: mild Associated Symptoms: fever/chills, runny nose, sinus pain/drainage, sore throat, cough Allergies: Coded Allergies: No Known Allergies (Unverified , 09/08/17) Home Meds Active Scripts Levofloxacin (LEVAQUIN) 500 Mg Tablet, 500 MG PO DAILY24 for 5 Days, #5 TABLET Prov:MAT CALIXTO MD 09/09/17 Omeprazole (OMEPRAZOLE) 20 Mg Tablet.dr, 1 TAB PO DAILY for 30 Days, #30 TAB 1 Refill Prov:MAT CALIXTO MD 09/09/17 Constitutional: fever, malaise Respiratory: cough Cardiovascular: no symptoms reported Gastrointestinal: no symptoms reported Genitourinary: no symptoms reported Musculoskeletal: no symptoms reported Skin: no symptoms reported Psychiatric/Neurological: no symptoms reported Endocrine: no symptoms reported Hematologic/Lymphatic: no symptoms reported Past Medical History Medical History: asthma Surgical History: no surgical history Social History Alcohol Use: none Drug Use: none Physical Exam General Appearance: alert, mild distress Eye: eyes nml inspection, lids & conjunct. nml, PERRL, no nystagmus Nose: rhinorrhea, mucosal edema Throat: airway nml CVS: reg rate & rhythm, heart sounds nml Skin: color nml, no rash, warm/dry Results/Orders Results/Orders Orders - SMITA DELUNA NP Influenza A&B (08/17/19 19:36) Strep Screen (08/17/19 19:36) Xr Chest 2v (08/17/19 19:50) Vital Signs Date Time Temp Pulse Resp B/P (MAP) Pulse Ox O2 Delivery O2 Flow Rate FiO2 08/17/19 19:25 98.6 80 18 08/17/19 19:25 98.6 80 18 147/80 (102) 97 Room Air 08/17/19 19:03 98.6 80 18 97 Laboratory Tests Test 08/17/19 19:40 Influenza Type A Antigen NEGATIVE (NEG) Influenza B Immunofluorescence NEGATIVE (NEG) Group A Streptococcus Screen POSITIVE (NEGATIVE) Departure Time of Disposition: 20:13 Disposition: 01 HOME, SELF-CARE Impression: Primary Impression: Strep pharyngitis Condition: Stable Patient Instructions: Strep Throat, [id number] Referrals: PCP,UNKNOWN (PCP) PRIMARY CARE PROVIDER Additional Instructions: Continue to alternate Tylenol and Motrin for fever and pain Follow up with your Primary Care Provider in the next 1-2 days If symptoms become worse return to the ER Medrol Dose juan pablo Amoxil 500 BID for 10 dyas Albuterol MDI 1-2 puffs q 4 hours as needed for SOB Duration or Time Spent with Pa: 20 min SMITA DELUNA NP Aug 17, 2019 19:41
--- NOTE | 2019-08-17 20:08 | DIREP ---
PROCEDURE:CHEST 2 VIEWS COMPARISON:None. INDICATIONS:wheezing FINDINGS: LUNGS/PLEURA:No significant pulmonary parenchymal abnormalities. No effusions. VASCULATURE:Normal. Unremarkable pulmonary vasculature. CARDIAC:Normal. No cardiac silhouette abnormality or cardiomegaly. MEDIASTINUM:Normal. No visible mass or adenopathy. BONES:Normal. No fracture or visible bony lesion. OTHER:Negative. CONCLUSION:No acute cardiopulmonary findings. Dictated by: Edison Lagos M.D. on 08/17/2019 at 08:06 PM
== END 2019-08-17 20:14 | disposition home or self-care (01) ==
LOC: ER 18:44
DX: J02.0 Streptococcal pharyngitis (principal)
CPT/HCPCS: 71046; 87804; 87880; 99284